=== PATIENT | female | born 1975 | race Caucasian/White ===

== ENCOUNTER 2017-06-05 11:58 | Emergency (ER) | payer OTHER ==
[~2017-06-05] VITALS: Ht 170.2 cm; Wt 67.3 kg
[2017-06-05 12:52] VITALS: BP 147/75
== END 2017-06-05 12:53 | disposition home or self-care (01) ==
LOC: ER 12:00
DX: H92.01 Otalgia, right ear (principal); J02.9 Acute pharyngitis, unspecified; Y08.89XA Assault by other specified means, initial encounter
CPT/HCPCS: 99281

== ENCOUNTER 2017-10-28 09:36 | Emergency (ER) | payer MEDICAID, OTHER ==
[~2017-10-28] VITALS: Ht 167.6 cm; Wt 64.7 kg
[2017-10-28 09:47] VITALS: BP 142/79
== END 2017-10-28 10:42 | disposition home or self-care (01) ==
LOC: ER 09:36
DX: F32.9 Major depressive disorder, single episode, unspecified (principal)
CPT/HCPCS: 99284

== ENCOUNTER 2023-08-19 15:37 | Emergency (ER) | payer MEDICAID, OTHER ==
[~2023-08-19] VITALS: Ht 170.2 cm; Wt 82.9 kg
[2023-08-19 16:21] VITALS: BP 172/89; PULSE 71; RESP 16; TEMP 97.9; O2SAT 100
[2023-08-19] MEDS: TETanus/Pertussis (Acell)/Diphther VAC/PF (Tdap-Adult) 0.5ml syringe IMVAC ONE (16:57)
[2023-08-19] MEDS: povidone-iodine 120ml topical solution TP ONE (17:00)
== END 2023-08-19 18:05 | disposition home or self-care (01) ==
LOC: ER 15:37
DX: S61.211A Laceration without foreign body of left index finger without damage to nail, initial encounter (principal); X58.XXXA Exposure to other specified factors, initial encounter; Y93.89 Activity, other specified; Y92.89 Other specified places as the place of occurrence of the external cause; Y99.8 Other external cause status
CPT/HCPCS: 12001; 90471; 90715; 99283; A6449